=== PATIENT | male | born 1960 ===

== ENCOUNTER 2017-01-20 11:09 | Emergency (ER) | payer MEDICAID ==
[2017-01-20 13:28] VITALS: BP 167/81; PULSE 76; RESP 20; TEMP 98.9; O2SAT 98
--- NOTE | 2017-01-20 13:31 | C.PDOC ---
History Of Present Illness 56-year-old male, presents to the emergency department with complaints of left knee pain and pain in left forearm, that started one month ago. Denies trauma, chest pain, shortness of breath pain, or any other associated symptoms. Patient has not been evaluated by a doctor, prior to my evaluation. Chief Complaint (Nursing): Upper Extremity Problem/Injury History Per: Patient History/Exam Limitations: no limitations Onset/Duration Of Symptoms: Days Current Symptoms Are (Timing): Still Present Severity: Moderate Past Medical History Reviewed: Historical Data, Nursing Documentation, Vital Signs Vital Signs: Last Vital Signs Temp 98.9 F 01/20/17 13:27 Pulse 76 01/20/17 13:27 Resp 20 01/20/17 13:27 BP 167/81 H 01/20/17 13:27 Pulse Ox 98 01/20/17 13:31 Family History: States: No Known Family Hx - Social History Hx Alcohol Use: No Hx Substance Use: No - Immunization History Hx Tetanus Toxoid Vaccination: Yes Hx Influenza Vaccination: Yes Hx Pneumococcal Vaccination: Yes Review Of Systems Except As Marked, All Systems Reviewed And Found Negative. Constitutional: Negative for: Fever, Chills Respiratory: Negative for: Cough, Shortness of Breath Gastrointestinal: Negative for: Nausea, Vomiting Musculoskeletal: Positive for: Arm Pain, Leg Pain (L knee) Neurological: Negative for: Weakness, Numbness Physical Exam - Physical Exam Appears: Non-toxic, No Acute Distress Skin: Warm, Dry, No Rash Eye(s): bilateral: Normal Inspection Nose: Normal Oral Mucosa: Moist Lips: Normal Appearing Neck: Normal ROM Cardiovascular: Rhythm Regular, No Murmur Respiratory: Normal Breath Sounds, No Accessory Muscle Use Extremity: Normal ROM, No Tenderness, No Calf Tenderness, Capillary Refill (<2 seconds), No Deformity, No Swelling Neurological/Psych: Oriented x3 ED Course And Treatment O2 Sat by Pulse Oximetry: 98 Disposition - Disposition Referrals: [facility] [Outside] [facility] [Outside] Disposition: HOME/ ROUTINE Disposition Time: 12:45 Condition: GOOD Additional Instructions: Thank you for letting us take care of you today. Your provider was Dr. Cabrera. You were treated for knee and arm pain. The emergency medical care you received today was directed at your acute symptoms. If you were prescribed any medication, please fill it and take as directed. It may take several days for your symptoms to resolve. Return to the Emergency Department if your symptoms worsen, do not improve, or if you have any other problems. Please contact your doctor or call one of the physicians/clinics you have been referred to that are listed on the Patient Visit Information form that is included in your discharge packet. Bring any paperwork you were given at discharge with you along with any medications you are taking to your follow up visit. Our treatment cannot replace ongoing medical care by a primary care provider (PCP) outside of the emergency department. Thank you for allowing the [facility] team to be part of your care today. Follow up with the clinic in 4-5 days for outpatient care. Prescriptions: Ibuprofen [Motrin] 600 mg PO Q6 PRN #20 tab PRN Reason: Pain, Moderate (4-7) Instructions: Knee Sprain (ED) Forms: Gen Discharge Inst Pashto Print Language: DUTCH - Clinical Impression Clinical Impression: Knee pain, Forearm pain - Scribe Statement The provider has reviewed the documentation as recorded by the Xin King All medical record entries made by the Xin were at my direction and personally dictated by me. I have reviewed the chart and agree that the record accurately reflects my personal performance of the history, physical exam, medical decision making, and the department course for this patient. I have also personally directed, reviewed, and agree with the discharge instructions and disposition.
--- NOTE | 2017-01-20 14:37 | RAD ---
PROCEDURE: Left Knee Radiographs. HISTORY: Pain. COMPARISON: None. FINDINGS: BONES: No fracture. No bone destruction. Posterior tibial diaphyseal osseous hypertrophy most consistent with " tug "effects -a benign finding JOINTS: Minimal patellofemoral osteoarthritis. JOINT EFFUSION: None. OTHER FINDINGS: None. IMPRESSION: No fracture. Mild degenerative changes. Other findings as above
--- NOTE | 2017-01-20 14:40 | RAD ---
PROCEDURE: Radiographs of the Left Forearm HISTORY: r/o fx COMPARISON: None available. TECHNIQUE: Frontal and lateral views obtained. FINDINGS: BONES: No fracture or destructive lesion. Osseous hypertrophic changes along each medial and lateral humeral epicondyle (osseous tug effects and/or calcific/of ossified tendinopathy) and along the posterior olecranon aspect (triceps shallow enthesophyte) are noted JOINT SPACES: Unremarkable. OTHER FINDINGS: None. IMPRESSION: No fracture l or dislocation. Calcific/ossific medial and lateral "Epicondylitis" radiographic findings Triceps insertional enthesophyte/blending olecranon spur
== END 2017-01-20 13:26 | disposition home or self-care (01) ==
LOC: C.ER 11:09
DX: M25.562 Pain in left knee (principal); M79.632 Pain in left forearm